=== PATIENT | female | born 2000 | race Caucasian/White ===

== ENCOUNTER 2024-07-20 10:50 | Day surgery (SDC) | payer OTHER ==
[2024-07-20] MEDS ORDERED: LACTATED RINGERS 1,000 ML BAG ONE (13:58)
[2024-07-20] MEDS ORDERED: PROPOFOL 10 MG/ML 20 ML VIAL IV ONE (13:58)
--- NOTE | 2024-07-22 15:57 | PCN ---
PROCEDURE NOTE REQUESTING PHYSICIAN: Dr. Marcial Haywood. BRIEF HISTORY: The patient is a 23-year-old pleasant white female scheduled for an elective upper endoscopy as a part of evaluation of chronic diarrhea and abdominal bloating for the last 3 to 4 years duration. She recently had labs done and celiac serology was positive and hence scheduled for EGD to evaluate for celiac disease. The tissue transglutaminase was negative, but positive antigliadin IgG antibody was noted. PROCEDURE PERFORMED: EGD with multiple duodenal biopsies. PREOPERATIVE DIAGNOSIS: Chronic diarrhea and abdominal bloating, rule out celiac disease. ANESTHESIA: IV sedation per Anesthesia. DESCRIPTION OF PROCEDURE: After informed consent was obtained from the patient, she was brought into the endoscopy unit. IV conscious sedation was administered by Anesthesia under continuous monitoring. Initially, the Olympus CF-190 video endoscope was inserted into the mouth, esophagus intubated without any difficulty and was gradually advanced into the stomach and duodenum and carefully examined. Bulb and the second part of the duodenum appeared normal. Multiple biopsies were done from the duodenum to rule out celiac disease. The scope was then withdrawn through the stomach, adequately insufflated with air and upon careful examination, mucosa of the antrum, body, cardia, and fundus appeared normal. The scope was then withdrawn through the esophagus. The GE junction was located at 38 cm from the incisors. Small sliding-type hiatal hernia noted. Rest of the esophagus appeared normal and the patient tolerated the procedure well. IMPRESSION: 1. Small sliding-type hiatal hernia. 2. Normal-appearing duodenum, status post multiple biopsies, rule out celiac disease. RECOMMENDATIONS: Findings of this examination were discussed with the patient as well as the family. She was advised to follow up with the biopsy results and she will be seen in the office in 2 to 3 weeks. MMODL / IJN: [id number] /
== END 2024-07-20 15:00 ==
LOC: ORWHC2ENDO 10:50
PROVIDERS: ATTEND Internal Medicine Gastroenterology
DX: D72.820 Lymphocytosis (symptomatic) (principal); K52.9 Noninfective gastroenteritis and colitis, unspecified; K44.9 Diaphragmatic hernia without obstruction or gangrene
CPT/HCPCS: 43239; 81025; 88305